=== PATIENT | female | born 1965 | race Caucasian/White ===

== ENCOUNTER 2017-01-08 10:36 | Outpatient (CLI) | payer BC ==
--- NOTE | 2017-01-08 11:50 | DIAGNOSTIC IMAGING REPORT ---
PROCEDURE: CT SINUS/FACIAL BONES W/O CONT CLINICAL INDICATION: CHRONIC SINUSITIS TECHNIQUE: Noncontrast axial CT images through the sinuses. Coronal and sagittal reformations were created. COMPARISON: None. FINDINGS: The frontal sinuses are normally aerated. The outflow tracts are patent. Sphenoid sinuses are normally aerated. Narrowing of the left sphenoid sinus outflow tract. No significant mucosal thickening in the ethmoid air cells. The maxillary sinuses are normally aerated without mucosal thickening. The outflow tracts are patent. The nasal septum demonstrates mild rightward deviation of the anterior osseous portion without airway occlusion or significant narrowing. The mid and posterior portion is fairly midline. No significant spurs. Nasal passages are patent with normal nasal turbinate morphology. No facial bone fractures. Temporomandibular joints are normally aligned. Bony orbits are intact. Orbital soft tissues appear normal. Facial soft tissues and visible glandular structures are symmetric. IMPRESSION: 1. No findings of significant acute or chronic sinus disease. 2. Minor rightward anterior nasoseptal deviation. All CT scans at this facility use dose modulation, iterative reconstruction, and/or weight-based dosing when appropriate to reduce radiation dose to as low as reasonably achievable.
== END 2017-01-08 23:00 ==
LOC: CT SRH 10:36
DX: J32.9 Chronic sinusitis, unspecified (principal)